=== PATIENT | female | born 1945 | race Caucasian/White ===

== ENCOUNTER 2023-01-12 19:23 | Emergency (ER) | payer MEDICARE, MEDICAID ==
[~2023-01-12] VITALS: Ht 149.9 cm; Wt 70.0 kg
[2023-01-12 19:41] VITALS: BP 145/62
[2023-01-12 20:30] LABS: BASO # 0.1 10^3/uL (0.0-0.2); EOS # 0.2 10^3/uL (0.0-0.5); EOS % 4.2 % (0.0-3.0); HEMATOCRIT 31.1 % (36.0-47.0); HEMOGLOBIN 9.9 g/dl (12.0-15.5); LYMPH # 0.9 10^3/uL (1.5-5.0); LYMPH % 18.1 % (24.0-44.0); MEAN CORPUSCULAR HEMOGLOBIN 28.1 pg (27.0-33.0); MEAN CORPUSCULAR HGB CONC 31.8 g/dl (32.0-36.5); MEAN CORPUSCULAR VOLUME 88.4 fl (80.0-96.0); MONO # 0.4 10^3/uL (0.0-0.8); MONO % 8.7 % (2.0-8.0); NEUTROPHILS # 3.3 10^3/uL (1.5-8.5); NEUTROPHILS % 67.6 % (36.0-66.0); PLATELET COUNT, AUTOMATED 308 10^3/uL (150-450); RED BLOOD COUNT 3.52 10^6/uL (4.00-5.40); WHITE BLOOD COUNT 4.8 10^3/uL (4.0-10.0)
[2023-01-12 20:41] LABS: INR 0.87
[2023-01-12 20:50] LABS: CK-MB VALUE MASS 1.9 NG/ML (<3.6)
[2023-01-12 20:53] LABS: CPK CREATINE PHOSPHOKINASE 90 U/L (34-145); MB/CK RELATIVE INDEX 2.11 (< OR =4)
[2023-01-12 20:54] LABS: ALBUMIN 3.5 G/DL (3.2-5.2); ALKALINE PHOSPHATASE 68 U/L (46-116); ALT/SGPT 14 U/L (7.0-40); AST/SGOT 18 U/L (<34); BILIRUBIN,DIRECT 0.1 MG/DL (<0.4); BILIRUBIN,TOTAL 0.4 MG/DL (0.3-1.2); BLOOD UREA NITROGEN 16 MG/DL (9-23); CALCIUM LEVEL 8.6 MG/DL (8.3-10.6); CARBON DIOXIDE LEVEL 32 MMOL/L (20-31); CHLORIDE LEVEL 105 MMOL/L (98-107); CREATININE FOR GFR 0.65 MG/DL (0.55-1.30); GLOMERULAR FILTRATION RATE > 60.0 (>39); GLUCOSE, FASTING 87 MG/DL (74-106); POTASSIUM SERUM 3.7 MMOL/L (3.5-5.1); SODIUM LEVEL 142 MMOL/L (136-145); TOTAL PROTEIN 5.9 G/DL (5.7-8.2)
[2023-01-12] MEDS ORDERED: ROPI4TAB3 PO (21:40)
[2023-01-12] MEDS ORDERED: ROPI12TA PO (21:40)
[2023-01-12 22:13] LABS: CK-MB VALUE MASS 1.8 NG/ML (<3.6)
[2023-01-12 22:19] LABS: MB/CK RELATIVE INDEX 2.02 (< OR =4)
== END 2023-01-12 22:51 | disposition home or self-care (01) ==
LOC: M ED 19:23
DX: R07.9 Chest pain, unspecified (principal); I44.4 Left anterior fascicular block; I25.2 Old myocardial infarction; Z86.79 Personal history of other diseases of the circulatory system; Z87.891 Personal history of nicotine dependence; Z88.6 Allergy status to analgesic agent; Z88.8 Allergy status to other drugs, medicaments and biological substances; Z79.899 Other long term (current) drug therapy

== ENCOUNTER 2023-01-16 02:56 | Emergency (ER) | payer MEDICARE, MEDICAID ==
[~2023-01-16] VITALS: Ht 149.9 cm; Wt 65.0 kg
[~2023-01-16 02:56] MED LIST: ROPI12TA PO; ROPI4TAB3 PO
[2023-01-16 03:44] LABS: BASO # 0.1 10^3/uL (0.0-0.2); BASO % 1.4 % (0.0-1.0); EOS # 0.3 10^3/uL (0.0-0.5); EOS % 6.7 % (0.0-3.0); HEMATOCRIT 32.1 % (36.0-47.0); HEMOGLOBIN 10.1 g/dl (12.0-15.5); LYMPH # 1.3 10^3/uL (1.5-5.0); LYMPH % 24.7 % (24.0-44.0); MEAN CORPUSCULAR HEMOGLOBIN 27.7 pg (27.0-33.0); MEAN CORPUSCULAR HGB CONC 31.5 g/dl (32.0-36.5); MEAN CORPUSCULAR VOLUME 88.2 fl (80.0-96.0); MONO # 0.6 10^3/uL (0.0-0.8); MONO % 11.5 % (2.0-8.0); NEUTROPHILS # 2.8 10^3/uL (1.5-8.5); NEUTROPHILS % 55.3 % (36.0-66.0); PLATELET COUNT, AUTOMATED 292 10^3/uL (150-450); RED BLOOD COUNT 3.64 10^6/uL (4.00-5.40); WHITE BLOOD COUNT 5.1 10^3/uL (4.0-10.0)
[2023-01-16 04:07] LABS: CK-MB VALUE MASS 2.8 NG/ML (<3.6)
[2023-01-16 04:09] LABS: CPK CREATINE PHOSPHOKINASE 120 U/L (34-145); MB/CK RELATIVE INDEX 2.33 (< OR =4)
[2023-01-16 04:10] LABS: BLOOD UREA NITROGEN 24 MG/DL (9-23); CARBON DIOXIDE LEVEL 32 MMOL/L (20-31); CHLORIDE LEVEL 106 MMOL/L (98-107); CREATININE FOR GFR 0.76 MG/DL (0.55-1.30); GLOMERULAR FILTRATION RATE > 60.0 (>39); GLUCOSE, FASTING 100 MG/DL (74-106); POTASSIUM SERUM 4.9 MMOL/L (3.5-5.1); SODIUM LEVEL 140 MMOL/L (136-145)
[2023-01-16] MEDS ORDERED: NS 1,000 ML IV ONE (04:10)
[2023-01-16 04:16] LABS: RSV AMPLIFICATION NEGATIVE (NEGATIVE)
[2023-01-16] MEDS ORDERED: HALOPERIDOL 5MG/ML 1ML VIAL IV ONE (05:00)
[2023-01-16] MEDS ORDERED: LORazepam 2 MG/ML 1ML VIAL IV STA (05:27)
[2023-01-16] MEDS ORDERED: FERR240T PO (07:16)
[2023-01-16] MEDS ORDERED: MM S100C PO (07:16)
[2023-01-16] MEDS ORDERED: ROPI4TAB21 PO (07:16)
[2023-01-16 07:38] VITALS: BP 145/63
== END 2023-01-16 08:19 | disposition home or self-care (01) ==
LOC: M ED 02:56 → EDBD 02:56 → M ED 08:19
DX: G25.81 Restless legs syndrome (principal); I44.7 Left bundle-branch block, unspecified; Z88.6 Allergy status to analgesic agent; Z79.899 Other long term (current) drug therapy
CPT/HCPCS: 80048; 82550; 82553; 84484; 85025; 87631; 93005; 93041; 96374; 96375; 99285; J1630; J2060